=== PATIENT | male | born 1990 | race Caucasian/White ===

== ENCOUNTER 2021-11-17 18:51 | Emergency (ER) | payer OTHER ==
[~2021-11-17] VITALS: Ht 172.7 cm; Wt 95.3 kg
[2021-11-17] MEDS ORDERED: HYDROCODONE/APAP 10MG-325MG TAB PO ONE (19:15)
[2021-11-17] MEDS ORDERED: HYDROCODONE/APAP 5MG-325MG TAB ONE (19:25)
[2021-11-17] MEDS ORDERED: ONDANSETRON HCL 4 MG ORAL DISINTEGRATING TAB ONE (19:27)
[2021-11-17] MEDS ORDERED: ONDANSETRON HCL 4 MG ORAL DISINTEGRATING TAB PO ONE (19:30)
[2021-11-17] MEDS ORDERED: IBUPROFEN800 MG PO (20:48)
[2021-11-17] MEDS ORDERED: CYCLOBENZAPRINE10 MG PO (20:48)
== END 2021-11-17 21:24 | disposition home or self-care (01) ==
LOC: FSED 18:55
DX: S20.219A Contusion of unspecified front wall of thorax, initial encounter (principal); M54.2 Cervicalgia; R51.9 Headache, unspecified; V89.2XXA Person injured in unspecified motor-vehicle accident, traffic, initial encounter; Y92.410 Unspecified street and highway as the place of occurrence of the external cause
CPT/HCPCS: 70450; 71111; 72125; 99283; Q0162